=== PATIENT | male | born 1975 | race Caucasian/White ===

== ENCOUNTER 2021-03-26 13:46 | Emergency (ER) | payer MEDICAID ==
[~2021-03-26] VITALS: Ht 165.1 cm; Wt 71.5 kg
[~2021-03-26 13:46] MED LIST: CYCL-1 PO; IBUP-1051 PO; NO HOME MEDS; ZOF4T PO
[2021-03-26 14:47] LABS: BASOPHILS # (AUTO) 0.1 X10'3 (0-0.2); BASOPHILS % (AUTO) 0.9 % (0-1); EOSINOPHILS # (AUTO) 0.2 X10'3 (0-0.9); EOSINOPHILS % (AUTO) 3.1 % (0-6); HEMATOCRIT 45.9 % (42.0-52.0); HEMOGLOBIN 15.8 g/dl (14.0-17.9); LYMPHOCYTES # (AUTO) 1.9 X10'3 (1.1-4.8); LYMPHOCYTES % (AUTO) 26.4 % (21-51); MEAN CORPUSCULAR HEMOGLOBIN 30.8 PG (27.0-31.0); MEAN CORPUSCULAR HGB CONC 34.3 g/dL (33.0-36.5); MEAN CORPUSCULAR VOLUME 89.9 FL (78-98); MEAN PLATELET VOLUME 8.8 FL (7.4-10.4); MONOCYTES # (AUTO) 0.7 X10'3 (0-0.9); MONOCYTES % (AUTO) 9.6 % (2-12); NEUTROPHILS # (AUTO) 4.4 X10'3 (1.8-7.7); PLATELET COUNT 251 X10'3 (140-440); RED BLOOD COUNT 5.11 X10'6 (4.70-6.10); RED CELL DISTRIBUTION WIDTH 13.8 % (11.5-14.5); WHITE BLOOD COUNT 7.4 X10'3 (4.5-11.0)
[2021-03-26 15:09] LABS: ALANINE AMINOTRANSFERASE 67 U/L (12-78); ALBUMIN 3.7 G/DL (3.4-5.0); ALKALINE PHOSPHATASE 118 IU/L (46-116); ANION GAP 10 (8-16); ASPARTATE AMINO TRANSFERASE 36 U/L (10-37); BILIRUBIN,TOTAL 0.3 MG/DL (0.1-1.0); BLOOD UREA NITROGEN 9 MG/DL (7-18); BUN/CREATININE RATIO 10.8 (5.4-32.0); CALCIUM 8.8 MG/DL (8.5-10.1); CHLORIDE 103 MMOL/L (99-107); CREATININE 0.83 MG/DL (0.60-1.10); GLUCOSE 321 MG/DL (70-104); LIPASE 120 U/L (73-393); POTASSIUM 3.6 MMOL/L (3.5-5.1); SODIUM 140 MMOL/L (135-145); TOTAL CARBON DIOXIDE 26.9 MMOL/L (24-32); TOTAL PROTEIN 7.5 G/DL (6.4-8.2); eGFR > 90 ML/MIN
--- NOTE | 2021-03-26 19:04 | NUR ---
NOTIFIED OF HYPERTENSION
[2021-03-26 19:27] LABS: CLARITY,URINE CLEAR (Clear); COLOR,URINE YELLOW (Yellow); GLUCOSE, URINE 500 mg/dl (Neg); KETONES,URINE NEGATIVE (Neg); LEUKOCYTE ESTERASE ,URINE NEGATIVE (Neg); NITRITES, URINE NEGATIVE (Neg); OCCULT BLOOD,URINE NEGATIVE (Neg); PH,URINE 5.5 (4.8-8.0); PROTEIN,URINE NEGATIVE (Neg); UROBILINOGEN,URINE 0.2 E.U/dL (0.2-1.0)
[2021-03-26 19:29] LABS: UA COLLECTION TYPE CLN CATCH MIDSTREAM
[2021-03-26 19:31] LABS: ETHANOL < 0.010 GM/DL (0.0-0.010)
[2021-03-26 19:35] LABS: URINE AMPHETAMINE SCREEN NEGATIVE (Neg); URINE BARBITUATE SCREEN NEGATIVE (Neg); URINE BENZODIAZEPINES SCREEN NEGATIVE (Neg); URINE CANNABINOID SCREEN NEGATIVE (Neg); URINE COCAINE SCREEN NEGATIVE (Neg); URINE METHADONE SCREEN NEGATIVE (Neg); URINE OPIATE SCREEN NEGATIVE (Neg); URINE PHENCYCLIDINE SCREEN NEGATIVE (Neg)
[2021-03-26] MEDS ORDERED: insulin regular, human 10 units/0.1 ml syringe SQ ONE (19:45)
[2021-03-26] MEDS ORDERED: normal saline 1000ML IV soln IVB ONE (19:45)
[2021-03-26] MEDS ORDERED: METF500T PO (20:12)
[2021-03-26] MEDS ORDERED: LORazepam 1 MG tablet PO ONE (20:15)
[2021-03-26] MEDS ORDERED: normal saline 1000ml 1,000 ML IV ONE (20:35)
[2021-03-26] MEDS ORDERED: insulin regular, human 10 units/0.1 ml syringe IV ONE (21:05)
[2021-03-26 21:57] VITALS: BP 114/68
== END 2021-03-26 22:03 | disposition home or self-care (01) ==
LOC: ER 13:46
DX: E11.9 Type 2 diabetes mellitus without complications (principal); G43.909 Migraine, unspecified, not intractable, without status migrainosus; J45.909 Unspecified asthma, uncomplicated; K21.9 Gastro-esophageal reflux disease without esophagitis; F17.200 Nicotine dependence, unspecified, uncomplicated; Z88.8 Allergy status to other drugs, medicaments and biological substances
CPT/HCPCS: 36415; 80053; 80305; 80320; 81003; 82948; 83690; 84443; 85025; 96361; 96372; 96374; 99284; J1815; J7030

== ENCOUNTER 2021-08-09 22:27 | Emergency (ER) | payer MEDICAID ==
[~2021-08-09] VITALS: Ht 165.1 cm; Wt 72.0 kg
[2021-08-10] MEDS ORDERED: metoclopramide 5 mg/ml inj IM ONE (00:15)
[2021-08-10] MEDS ORDERED: diphenhydrAMINE 25mg capsule PO ONE (00:15)
[2021-08-10] MEDS ORDERED: ketorolac trometh inj. 60 MG/2 ML VIAL IM ONE (00:15)
--- NOTE | 2021-08-10 01:10 | NUR ---
ASSUMED CARE OF PT. PT ROOMED IN BED 15. PT AMBULATED WITH COORDINATED AND ERECT GAIT. LIGHTS TURNED OFF IN ROOM FOR PT COMFORT.
[2021-08-10 01:50] LABS: BASOPHILS # (AUTO) 0.1 X10'3 (0-0.2); BASOPHILS % (AUTO) 0.5 % (0-1); EOSINOPHILS # (AUTO) 0.2 X10'3 (0-0.9); EOSINOPHILS % (AUTO) 1.2 % (0-6); HEMATOCRIT 48.8 % (42.0-52.0); HEMOGLOBIN 16.8 g/dl (14.0-17.9); LYMPHOCYTES # (AUTO) 3.6 X10'3 (1.1-4.8); LYMPHOCYTES % (AUTO) 23.7 % (21-51); MEAN CORPUSCULAR HEMOGLOBIN 30.6 PG (27.0-31.0); MEAN CORPUSCULAR HGB CONC 34.5 g/dL (33.0-36.5); MEAN CORPUSCULAR VOLUME 88.7 FL (78-98); MEAN PLATELET VOLUME 8.9 FL (7.4-10.4); MONOCYTES # (AUTO) 1.1 X10'3 (0-0.9); MONOCYTES % (AUTO) 7.4 % (2-12); NEUTROPHILS # (AUTO) 10.1 X10'3 (1.8-7.7); NEUTROPHILS % (AUTO) 67.2 % (42-75); PLATELET COUNT 342 X10'3 (140-440); RED CELL DISTRIBUTION WIDTH 13.8 % (11.5-14.5)
[2021-08-10 01:56] LABS: ANION GAP 10 (8-16); BLOOD UREA NITROGEN 20 MG/DL (7-18); BUN/CREATININE RATIO 19.2 (5.4-32.0); CALCIUM 9.2 MG/DL (8.5-10.1); CHLORIDE 103 MMOL/L (99-107); CREATININE 1.04 MG/DL (0.60-1.10); GLUCOSE 86 MG/DL (70-104); POTASSIUM 3.4 MMOL/L (3.5-5.1); SODIUM 143 MMOL/L (135-145); TOTAL CARBON DIOXIDE 29.7 MMOL/L (24-32); eGFR 77 ML/MIN
[2021-08-10 02:21] VITALS: BP 122/88
== END 2021-08-10 02:20 | disposition home or self-care (01) ==
LOC: ER 22:28
DX: G43.909 Migraine, unspecified, not intractable, without status migrainosus (principal); J45.909 Unspecified asthma, uncomplicated; K21.9 Gastro-esophageal reflux disease without esophagitis; F31.9 Bipolar disorder, unspecified; F20.9 Schizophrenia, unspecified; Z86.69 Personal history of other diseases of the nervous system and sense organs; Z87.11 Personal history of peptic ulcer disease; Z90.89 Acquired absence of other organs; Z98.890 Other specified postprocedural states; Z72.89 Other problems related to lifestyle; Z88.8 Allergy status to other drugs, medicaments and biological substances; Z79.899 Other long term (current) drug therapy
CPT/HCPCS: 36415; 80048; 85025; 96372; 99284; J1885; J2765; Q0163

== ENCOUNTER 2021-08-26 02:14 | Emergency (ER) | payer MEDICAID ==
[~2021-08-26] VITALS: Ht 165.1 cm; Wt 78.6 kg
[2021-08-26 02:19] VITALS: BP 155/92
== END 2021-08-26 02:50 | disposition home or self-care (01) ==
LOC: ER 02:16
DX: E11.65 Type 2 diabetes mellitus with hyperglycemia (principal); G43.909 Migraine, unspecified, not intractable, without status migrainosus; J45.909 Unspecified asthma, uncomplicated; K21.9 Gastro-esophageal reflux disease without esophagitis; F31.9 Bipolar disorder, unspecified; F20.9 Schizophrenia, unspecified; Z86.69 Personal history of other diseases of the nervous system and sense organs; Z87.11 Personal history of peptic ulcer disease; Z90.89 Acquired absence of other organs; Z98.890 Other specified postprocedural states; Z72.89 Other problems related to lifestyle; Z88.8 Allergy status to other drugs, medicaments and biological substances; Z79.899 Other long term (current) drug therapy
CPT/HCPCS: 82948; 99282; 99283

== ENCOUNTER 2021-08-30 06:50 | Emergency (ER) | payer MEDICAID ==
[~2021-08-30] VITALS: Ht 165.1 cm; Wt 72.0 kg
[2021-08-30 06:54] VITALS: BP 115/81
[2021-08-30] MEDS ORDERED: diphenhydrAMINE 25mg capsule PO ONE (08:00)
[2021-08-30] MEDS ORDERED: ketorolac trometh. 30mg/ml inj. IM ONE (08:00)
[2021-08-30] MEDS ORDERED: metoclopramide 5 mg/ml inj IM ONE (08:00)
== END 2021-08-30 08:25 | disposition home or self-care (01) ==
LOC: ER 06:51
DX: G43.909 Migraine, unspecified, not intractable, without status migrainosus (principal); G40.909 Epilepsy, unspecified, not intractable, without status epilepticus; J45.909 Unspecified asthma, uncomplicated; K21.9 Gastro-esophageal reflux disease without esophagitis; E11.9 Type 2 diabetes mellitus without complications; Z87.11 Personal history of peptic ulcer disease; Z72.89 Other problems related to lifestyle; Z88.8 Allergy status to other drugs, medicaments and biological substances; Z79.899 Other long term (current) drug therapy
CPT/HCPCS: 96372; 99284; J1885; J2765; Q0163

== ENCOUNTER 2021-09-14 14:41 | Emergency (ER) | payer MEDICAID ==
[~2021-09-14] VITALS: Ht 165.1 cm; Wt 78.0 kg
[2021-09-14 14:46] VITALS: BP 123/90
== END 2021-09-14 16:16 | disposition left against medical advice (07) ==
LOC: ER 14:41
DX: R06.02 Shortness of breath (principal); M79.10 Myalgia, unspecified site; Z53.21 Procedure and treatment not carried out due to patient leaving prior to being seen by health care provider
CPT/HCPCS: 93005

== ENCOUNTER 2021-10-03 04:13 | Emergency (ER) | payer MEDICAID ==
[~2021-10-03] VITALS: Ht 165.1 cm; Wt 59.1 kg
[2021-10-03 04:31] VITALS: BP 124/89
[2021-10-03] MEDS ORDERED: proCHLORperazine 10 MG/2 ml inj IM ONE (06:10)
[2021-10-03] MEDS ORDERED: ketorolac trometh inj. 60 MG/2 ML VIAL IM ONE (06:10)
[2021-10-03] MEDS ORDERED: acetaminophen 325mg tablet PO ONE (06:10)
[2021-10-03] MEDS ORDERED: SUMAtriptan succ. 6 MG/0.5ml vial SQ ONE (06:10)
[2021-10-03] MEDS ORDERED: SUMA100T PO (06:10)
== END 2021-10-03 06:55 | disposition home or self-care (01) ==
LOC: ER 04:14
DX: G43.909 Migraine, unspecified, not intractable, without status migrainosus (principal); R11.0 Nausea; J45.909 Unspecified asthma, uncomplicated; K21.9 Gastro-esophageal reflux disease without esophagitis; E11.9 Type 2 diabetes mellitus without complications; F31.9 Bipolar disorder, unspecified; F20.9 Schizophrenia, unspecified; Z86.69 Personal history of other diseases of the nervous system and sense organs; Z87.11 Personal history of peptic ulcer disease; Z90.89 Acquired absence of other organs; Z72.89 Other problems related to lifestyle; Z88.8 Allergy status to other drugs, medicaments and biological substances; Z79.899 Other long term (current) drug therapy
CPT/HCPCS: 96372; 99284; J0780; J1885; J3030

== ENCOUNTER 2021-10-09 08:39 | Emergency (ER) | payer MEDICAID ==
[~2021-10-09] VITALS: Ht 165.1 cm; Wt 74.0 kg
[~2021-10-09 08:39] MED LIST changes: +SUMA100T PO
[2021-10-09] MEDS ORDERED: ibuprofen tablet 400 MG TABLET PO ONE (09:10)
[2021-10-09] MEDS ORDERED: famotidine 20mg tablet PO ONE (09:10)
[2021-10-09] MEDS ORDERED: ibuprofen 200mg tablet PO ONE (09:20)
[2021-10-09 09:24] VITALS: BP 121/85
== END 2021-10-09 09:26 | disposition home or self-care (01) ==
LOC: ER 08:40
DX: Z13.89 Encounter for screening for other disorder (principal); R10.84 Generalized abdominal pain; R11.0 Nausea; G43.909 Migraine, unspecified, not intractable, without status migrainosus; J45.909 Unspecified asthma, uncomplicated; E11.9 Type 2 diabetes mellitus without complications; F31.9 Bipolar disorder, unspecified; F20.9 Schizophrenia, unspecified; Z86.69 Personal history of other diseases of the nervous system and sense organs; Z87.11 Personal history of peptic ulcer disease; Z90.89 Acquired absence of other organs; Z98.890 Other specified postprocedural states; Z72.89 Other problems related to lifestyle; Z88.8 Allergy status to other drugs, medicaments and biological substances; Z79.899 Other long term (current) drug therapy
CPT/HCPCS: 82948; 99283

== ENCOUNTER 2021-10-10 23:13 | Emergency (ER) | payer MEDICAID | END 2021-10-11 00:06 | disposition home or self-care (01) | LOC: ER 23:14 | DX: R68.2 Dry mouth, unspecified (principal); Z53.21 Procedure and treatment not carried out due to patient leaving prior to being seen by health care provider | CPT/HCPCS: 82948 ==

== ENCOUNTER 2021-11-07 02:18 | Emergency (ER) | payer MEDICAID ==
[~2021-11-07] VITALS: Ht 165.1 cm; Wt 79.5 kg
[~2021-11-07 02:18] MED LIST changes: -SUMA100T PO
[2021-11-07 02:30] VITALS: BP 137/96
== END 2021-11-07 05:18 | disposition left against medical advice (07) ==
LOC: ER 02:18
DX: G43.909 Migraine, unspecified, not intractable, without status migrainosus (principal); Z53.21 Procedure and treatment not carried out due to patient leaving prior to being seen by health care provider

== ENCOUNTER 2021-12-03 04:24 | Emergency (ER) | payer MEDICAID ==
[~2021-12-03] VITALS: Ht 165.1 cm; Wt 81.8 kg
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
[2021-12-03 06:07] LABS: URINE AMPHETAMINE SCREEN POSITIVE (Neg); URINE BARBITUATE SCREEN NEGATIVE (Neg); URINE BENZODIAZEPINES SCREEN NEGATIVE (Neg); URINE CANNABINOID SCREEN NEGATIVE (Neg); URINE COCAINE SCREEN NEGATIVE (Neg); URINE METHADONE SCREEN NEGATIVE (Neg); URINE OPIATE SCREEN NEGATIVE (Neg); URINE PHENCYCLIDINE SCREEN NEGATIVE (Neg)
--- NOTE | 2021-12-03 06:30 | NUR ---
Pt was resting but awakened up my entry into the room. Denies pain. Stated, "I am tired of feeling like this." He made a verbal agreement that he will not harm himself while in our care.
[2021-12-03 06:41] LABS: BASOPHILS % (AUTO) 0.4 % (0-1); EOSINOPHILS # (AUTO) 0.2 X10'3 (0-0.9); EOSINOPHILS % (AUTO) 2.3 % (0-6); HEMOGLOBIN 14.5 g/dl (14.0-17.9); LYMPHOCYTES # (AUTO) 1.9 X10'3 (1.1-4.8); LYMPHOCYTES % (AUTO) 18.5 % (21-51); MEAN CORPUSCULAR HEMOGLOBIN 29.9 PG (27.0-31.0); MEAN CORPUSCULAR HGB CONC 33.8 g/dL (33.0-36.5); MEAN CORPUSCULAR VOLUME 88.4 FL (78-98); MEAN PLATELET VOLUME 8.6 FL (7.4-10.4); MONOCYTES % (AUTO) 9.9 % (2-12); NEUTROPHILS # (AUTO) 7.2 X10'3 (1.8-7.7); NEUTROPHILS % (AUTO) 68.9 % (42-75); PLATELET COUNT 247 X10'3 (140-440); RED BLOOD COUNT 4.86 X10'6 (4.70-6.10); RED CELL DISTRIBUTION WIDTH 14.3 % (11.5-14.5); WHITE BLOOD COUNT 10.5 X10'3 (4.5-11.0)
[2021-12-03 06:56] LABS: ALANINE AMINOTRANSFERASE 48 U/L (12-78); ALBUMIN 3.3 G/DL (3.4-5.0); ALKALINE PHOSPHATASE 77 IU/L (46-116); ANION GAP 5 (8-16); ASPARTATE AMINO TRANSFERASE 35 U/L (10-37); BILIRUBIN,TOTAL 0.7 MG/DL (0.1-1.0); BLOOD UREA NITROGEN 20 MG/DL (7-18); BUN/CREATININE RATIO 24.7 (5.4-32.0); CALCIUM 8.4 MG/DL (8.5-10.1); CHLORIDE 108 MMOL/L (99-107); CREATININE 0.81 MG/DL (0.60-1.10); ETHANOL < 0.010 GM/DL (0.0-0.010); GLUCOSE 94 MG/DL (70-104); POTASSIUM 3.6 MMOL/L (3.5-5.1); SODIUM 141 MMOL/L (135-145); TOTAL CARBON DIOXIDE 27.8 MMOL/L (24-32); TOTAL PROTEIN 6.5 G/DL (6.4-8.2); eGFR > 90 ML/MIN
--- NOTE | 2021-12-03 07:09 | NUR ---
Pt is standing at his door stating that his anxiety is through the roof and would like medicine.
[2021-12-03] MEDS ORDERED: LORazepam 1 MG tablet PO ONE (07:15)
--- NOTE | 2021-12-03 07:35 | NUR ---
Pt has an open wound to back of R hand. Red, painful, and has a black center.
[2021-12-03 08:07] VITALS: BP 117/77
--- NOTE | 2021-12-03 08:59 | NUR ---
[facility] packet faxed.
--- NOTE | 2021-12-03 09:20 | NUR ---
Received patient to bed #27 at 0915. Pt ambulated independently with [facility] [place]. Pt A&Ox4, calm/cooperative. Ordered late breakfast tray for patient.
--- NOTE | 2021-12-03 10:15 | NUR ---
One on one with patient, pt awake eating breakfast (late tray ordered.) Pt continues to endorse suicidal thoughts with a plan to jump off a bridge. Pt reports a history of suicidal thoughts with attempts of overdosing and one time running into traffic. Pt denies A/VH, reports "usually when I'm stressed." Pt sees a provider through [facility] and reports he currently has no home medications. Pt presents fatigued throughout assessment, eating and closing his eyes. Pt denies methamphetamine use even though his tox screen was positive. Hx: Bipolar, schizophrenia
--- NOTE | 2021-12-03 10:48 | NUR ---
Met with patient in regards to substance use and to see if patient wanted resources for treatment options. Patient would like to go to inpatient rehab. I gave patient [facility] number to call and start process. I also gave patient my card to call me if he had any questions.
--- NOTE | 2021-12-03 12:15 | NUR ---
Pt was sleeping comfortably, awakened him to eat lunch.
--- NOTE | 2021-12-03 13:58 | NUR ---
Flakito with [facility] is at bedside evaluating the patient.
--- NOTE | 2021-12-03 13:59 | NUR ---
[facility] clinician at bedside.
--- NOTE | 2021-12-03 14:30 | NUR ---
PER SUKHDEEP PT IS [employer]. HE IS HIGH RISK AT [facility] [employer].
[2021-12-03] MEDS ORDERED: SULF1TAB49 PO (15:02)
--- NOTE | 2021-12-03 15:07 | NUR ---
Spoke with Corina at [facility], she will be having a clinician call pt back on his cell phone [phone].
--- NOTE | 2021-12-03 15:08 | NUR ---
Pt charging ankle monitor during discharge planning. Pt states he will call parole after discharge. Pt chose a bus ticket to parole instead of a taxi. Bus ticket given.
--- NOTE | 2021-12-03 15:32 | NUR ---
DISCHARGE NOTE: Patient discharged from unit at 1530. Pt left with all personal belongings. Pt was A&Ox4. Pt was given resources for [facility] in [place]. A [place] client service representative is scheduled to call patient back on his cell phone to interview for substance use program. Pt left with a charged ankle monitor on right ankle. Pt declined a taxi to parole, however was given two bus passes. Pt states "I will go to parole and talk to them."
== END 2021-12-03 15:30 | disposition home or self-care (01) ==
LOC: ER 04:24
DX: R45.851 Suicidal ideations (principal); F15.23 Other stimulant dependence with withdrawal; L03.113 Cellulitis of right upper limb; R41.0 Disorientation, unspecified; G43.909 Migraine, unspecified, not intractable, without status migrainosus; J45.909 Unspecified asthma, uncomplicated; K21.9 Gastro-esophageal reflux disease without esophagitis; E11.9 Type 2 diabetes mellitus without complications; F31.9 Bipolar disorder, unspecified; F17.210 Nicotine dependence, cigarettes, uncomplicated; Z88.1 Allergy status to other antibiotic agents; Z79.899 Other long term (current) drug therapy; Z20.822 Contact with and (suspected) exposure to COVID-19
CPT/HCPCS: 36415; 80053; 80305; 80320; 84443; 85025; 87635; 99285; C9803

== ENCOUNTER 2022-08-19 06:48 | Emergency (ER) | payer MEDICAID ==
[~2022-08-19] VITALS: Ht 165.1 cm; Wt 75.9 kg
[~2022-08-19 06:48] MED LIST changes: +ALBU6.7H14 INH; +CARB400T5 PO; -CYCL-1 PO; +GABA300C PO; -IBUP-1051 PO; +METF-900 PO; +MONT-40 PO; +NICO-687 TD; -NO HOME MEDS; -ZOF4T PO
[2022-08-19] MEDS ORDERED: dexamethasone sod phosphate 10mg/ml inj PO STA (07:12)
[2022-08-19] MEDS ORDERED: ipratropium/albuterol 3ml nebule NEB ONE (07:15)
[2022-08-19] MEDS ORDERED: ALBU90AE INH (07:15)
[2022-08-19] MEDS ORDERED: ALB0.5UD IH (07:15)
[2022-08-19 07:53] VITALS: BP 128/87
== END 2022-08-19 07:55 | disposition home or self-care (01) ==
LOC: ER 06:48
DX: J11.1 Influenza due to unidentified influenza virus with other respiratory manifestations (principal); R05.9 Cough, unspecified; G43.909 Migraine, unspecified, not intractable, without status migrainosus; J45.909 Unspecified asthma, uncomplicated; K21.9 Gastro-esophageal reflux disease without esophagitis; E11.9 Type 2 diabetes mellitus without complications; F31.9 Bipolar disorder, unspecified; Z88.8 Allergy status to other drugs, medicaments and biological substances
CPT/HCPCS: 94640; 99283; J1100; 94760

== ENCOUNTER 2023-01-18 15:59 | Emergency (ER) | payer MEDICAID ==
[~2023-01-18] VITALS: Ht 165.1 cm; Wt 74.1 kg
[~2023-01-18 15:59] MED LIST changes: +ALB0.5UD IH; +ALBU90AE INH
[2023-01-18 16:12] VITALS: BP 142/85
[2023-01-18] MEDS ORDERED: ketorolac tromethamine 15mg/ml inj. IM ONE (20:10)
[2023-01-18] MEDS ORDERED: ketorolac trometh. 30mg/ml inj. IM ONE (20:10)
== END 2023-01-18 20:44 | disposition home or self-care (01) ==
LOC: ER 16:00
DX: S66.912A Strain of unspecified muscle, fascia and tendon at wrist and hand level, left hand, initial encounter (principal); M79.622 Pain in left upper arm; G43.909 Migraine, unspecified, not intractable, without status migrainosus; J45.909 Unspecified asthma, uncomplicated; E11.9 Type 2 diabetes mellitus without complications; F17.210 Nicotine dependence, cigarettes, uncomplicated; Z79.899 Other long term (current) drug therapy; Z72.89 Other problems related to lifestyle; X58.XXXA Exposure to other specified factors, initial encounter; Y93.89 Activity, other specified; Y92.89 Other specified places as the place of occurrence of the external cause; Y99.8 Other external cause status
CPT/HCPCS: 29125; 96372; 99283; J1885

== ENCOUNTER 2023-03-24 08:49 | Emergency (ER) | payer MEDICAID | END 2023-03-24 09:22 | disposition left against medical advice (07) | LOC: ER 08:50 | DX: G43.909 Migraine, unspecified, not intractable, without status migrainosus (principal); Z53.21 Procedure and treatment not carried out due to patient leaving prior to being seen by health care provider ==